=== PATIENT | male | born 1960 | race Caucasian/White ===

== ENCOUNTER 2018-09-23 14:18 | Inpatient (IN) | payer OTHER ==
[~2018-09-23] VITALS: Ht 167.6 cm; Wt 110.7 kg
[2018-11-07] MEDS ORDERED: ZOLOFT100 MG PO (08:55)
[2018-11-07] MEDS ORDERED: CATAFLAN PO (08:56)
[2018-11-07] MEDS ORDERED: GABAPENTIN800 MG PO (08:56)
[2018-11-07] MEDS ORDERED: DICLO PO (08:57)
[2018-11-07] MEDS ORDERED: ATIVAN1 M1 PO (08:57)
[2018-11-07] MEDS ORDERED: PERCO PO (08:58)
[2018-11-07] MEDS ORDERED: VALIUM PO (08:58)
[2018-11-12] MEDS ORDERED: DICLOFENAC POTA50 MG PO (08:21)
[2018-11-12] MEDS ORDERED: DIAZEPAM10 MG PO (08:23)
[2018-11-12] MEDS ORDERED: OMEPRAZOLE40 MG (09:01)
== END 2018-11-15 08:58 | disposition home or self-care (01) | DRG 330 ==
LOC: SURG 11-12 05:00 → O/R 11-12 05:00 → SURH 11-12 07:00 → SURG 11-12 12:08 → SURH 11-12 22:15 → SURG 11-15 08:58
PROVIDERS: ADMIT Colon & Rectal Surgery
PROC: 0DTP4ZZ Resection of Rectum, Percutaneous Endoscopic Approach (ICD-10-PCS; 2018-11-12)
PROC: 0DJD8ZZ Inspection of Lower Intestinal Tract, Via Natural or Artificial Opening Endoscopic (ICD-10-PCS; 2018-11-12)
PROC: 0DTN4ZZ Resection of Sigmoid Colon, Percutaneous Endoscopic Approach (ICD-10-PCS; principal; 2018-11-12 22:15)
DX: K57.40 Diverticulitis of both small and large intestine with perforation and abscess without bleeding (principal); K92.1 Melena; K56.51 Intestinal adhesions [bands], with partial obstruction; G47.31 Primary central sleep apnea; K62.89 Other specified diseases of anus and rectum

== ENCOUNTER 2019-11-14 06:00 | Day surgery (SDC) | payer OTHER ==
[~2019-11-14 06:00] MED LIST: ATIVAN1 M1 PO; CATAFLAN PO; DIAZEPAM10 MG PO; DICLO PO; DICLOFENAC POTA50 MG PO; GABAPENTIN800 MG PO; OMEPRAZOLE40 MG; PERCO PO; VALIUM PO; ZOLOFT100 MG PO
== END 2019-11-14 09:45 | disposition home or self-care (01) ==
LOC: AMB-ENDOS 06:00
PROVIDERS: ATTEND Colon & Rectal Surgery
DX: K62.89 Other specified diseases of anus and rectum (principal); K64.2 Third degree hemorrhoids